=== PATIENT | female | born 1955 | race Caucasian/White ===

== ENCOUNTER 2019-09-11 12:19 | Observation (INO) | payer BC ==
[2019-09-11] MEDS ORDERED: CLINDAMYCIN 600MG/50ML PREMIX 600 MG/50 ML BAG IVPB ONE (13:39)
--- NOTE | 2019-09-11 13:40 | Emergency Department Record ---
History of Present Illness - General Chief complaint: Vomiting Stated complaint: VOMITING Time Seen by Provider: 09/11/19 13:33 Source: Patient, RN notes reviewed Mode of Arrival: Ambulatory - History of Present Illness Initial comments: redness in the left lower leg and vomiting and the redness in the leg started yesterday. Primary is Dr. Merlene Ramos, Left knee replacement 2 years ago Onset/Timin -: Days(s) Associated Abdominal Pain: No Improves with: None Worsens with: None - Related Data Home Medications Medication Instructions Recorded Confirmed Last Taken Allopurinol 100 mg PO DAILY 09/11/19 09/11/19 09/11/19 Amlodipine Besylate [Norvasc] 10 mg PO DAILY 09/11/19 09/11/19 09/11/19 Atorvastatin Calcium [Lipitor] 20 mg PO DAILY 09/11/19 09/11/19 09/11/19 Gabapentin [Neurontin] 400 mg PO TID 09/11/19 09/11/19 09/11/19 Hydrochlorothiazide [Hctz] 25 mg PO DAILY 09/11/19 09/11/19 09/11/19 Levothyroxine Sodium [Synthroid] 175 mcg PO DAILY 09/11/19 09/11/19 09/11/19 Lisinopril 20 mg PO DAILY 09/11/19 09/11/19 09/11/19 Multivitamin [Daily Multiple 1 each PO DAILY 09/11/19 09/11/19 09/11/19 Vitamin] Ubidecarenone [Coq-10] 30 mg PO DAILY 09/11/19 09/11/19 09/11/19 Allergies Allergy/AdvReac Type Severity Reaction Status Date / Time cephalexin [From Keflex] Allergy HIVES Verified 09/11/19 12:26 Travel Screening - Travel/Exposure Within Last 30 Days Have you traveled within the last 30 days?: No - Travel/Exposure Within Last Year Have you traveled outside the [place] in the last year?: No - Additonal Travel Details Have you been exposed to anyone with a communicable illness?: No - Travel Symptoms Symptom Screening: None Review of Systems Reviewed: No additional complaints except as noted below Constitutional: Reports: As per HPI. Denies: Chills, Fever, Malaise, Night swea ts, Weakness, Weight change Eyes: Reports: As per HPI. Denies: Eye discharge, Eye pain, Photophobia, Vision change ENT: Reports: As per HPI. Denies: Congestion, Dental pain, Ear pain, Epistaxis, Hearing loss, Throat pain Respiratory: Reports: As per HPI. Denies: Cough, Dyspnea, Hemoptysis, Stridor, Wheezes Cardiovascular: Reports: As per HPI. Denies: Arrhythmia, Chest pain, Dyspnea on exertion, Edema, Murmurs, Orthopnea, Palpitations, Paroxysmal nocturnal dyspnea, Rheumatic Fever, Syncope Endocrine: Reports: As per HPI. Denies: Fatigue, Heat or cold intolerance, P olydipsia, Polyuria Gastrointestinal: Reports: As per HPI. Denies: Abdominal pain, Constipation, Diarrhea, Hematemesis, Hematochezia, Melena, Nausea, Vomiting Genitourinary: Reports: As per HPI. Denies: Abnormal menses, Discharge, Dyspareunia, Dysuria, Frequency, Hematuria, Incontinence, Retention, Urgency Musculoskeletal: Reports: As per HPI. Denies: Arthralgia, Back pain, Gout, Joint swelling, Myalgia, Neck pain Skin: Reports: As per HPI. Denies: Bruising, Change in color, Change in hair/n ails, Lesions, Pruritus, Rash Neurological: Reports: As per HPI. Denies: Abnormal gait, Confusion, Headache, Numbness, Paresthesias, Seizure, Tingling, Tremors, Vertigo, Weakness Psychiatric: Reports: As per HPI. Denies: Anxiety, Auditory hallucinations, Depression, Homicidal thoughts, Suicidal thoughts, Visual hallucinations Hematological/Lymphatic: Reports: As per HPI. Denies: Anemia, Blood Clots, Easy bleeding, Easy bruising, Swollen glands Past Medical History - SOCIAL HISTORY Smoking Status: Never smoker Alcohol Use: Rare Drug Use: None - RESPIRATORY Hx Respiratory Disorders: No - CARDIOVASCULAR Hx Cardio Disorders: Yes Hx Hypertension: Yes Comment:: high cholesterol - NEURO Hx Neuro Disorders: Yes Hx Neuropathy: Yes - GI Hx GI Disorders: No - Hx Genitourinary Disorders: No - ENDOCRINE Hx Endocrine Disorders: Yes Hx Thyroid Disease: Yes - MUSCULOSKELETAL Hx Musculoskeletal Disorders: Yes - PSYCH Hx Psych Problems: No - HEMATOLOGY/ONCOLOGY Hx Hematology/Oncology Disorders: No Family Medical History Any Significant Family History?: Yes Hx Cancer: Father Hx Heart Disease: Mother Physical Exam - General General Appearance: Alert, Oriented x3, Cooperative, No acute distress - Head Head exam: Normal inspection - Eye Eye exam: Normal appearance, PERRL Pupils: Normal accommodation - ENT ENT exam: Normal exam, Mucous membranes moist, Normal external ear exam, Normal orophraynx, TM's normal bilaterally Ear exam: Normal external inspection. negative: External canal tenderness Nasal Exam: Normal inspection. negative: Discharge, Sinus tenderness Mouth exam: Normal external inspection, Tongue normal Teeth exam: Normal inspection. negative: Dental caries Throat exam: Normal inspection. negative: Tonsillar erythema, Tonsillar exudate - Neck Neck exam: Normal inspection, Full ROM. negative: Tenderness - Respiratory Respiratory exam: Normal lung sounds bilaterally. negative: Respiratory distress - Cardiovascular Cardiovascular Exam: Regular rate, Normal rhythm, Normal heart sounds - GI/Abdominal GI/Abdominal exam: Soft, Normal bowel sounds. negative: Tenderness - Rectal Rectal exam: Deferred - exam: Deferred - Extremities Extremities exam: Normal inspection, Full ROM, Normal capillary refill. negative: Tenderness - Back Back exam: Reports: Normal inspection, Full ROM. Denies: Muscle spasm, Rash noted, Tenderness - Neurological Neurological exam: Alert, Normal gait, Oriented X3, Reflexes normal - Psychiatric Psychiatric exam: Normal affect, Normal mood - Skin Skin exam: Rash (cellulitis of the left lower leg) Course Vital Signs 09/11/19 09/11/19 12:32 12:39 Temperature 100.9 F H 100.9 F H Pulse Rate 93 H 93 H Respiratory 20 20 Rate Blood Pressure 143/71 143/71 Pulse Ox 98 98 - Reevaluation(s) Reevaluation #1: advised patient to stay and she says no she wants to go home. Risk of infection of the knee replacement is a concern. Will talk to his faith. 09/11/19 16:04 Reevaluation #2: patient agreed to stay after heard the discussion. 09/11/19 17:04 Reevaluation #3: admit to Dr Harper 09/11/19 17:06 Medical Decision Making - Lab Data Result diagrams: 09/11/19 13:55 09/11/19 13:55 Disposition Clinical Impression: Cellulitis, leg Qualifiers: Laterality: left Qualified Code(s): L03.116 - Cellulitis of left lower limb Decision to Admit: Admit from ER Condition: (1) Good Forms: Patient Portal Access Time of Disposition: 17:04 Quality - Quality Measures Quality Measures: N/A - Blood Pressure Screening Does Patient Have Any of the Following: No, Active Dx of HTN Blood Pressure Classification: Hypertensive Reading Systolic Measurement: 143 Diastolic Measurement: 71 Screening for High Blood Pressure: Patient Exclusion, Hx of HTN [G9744]
[2019-09-11 14:04] LABS: ABSOLUTE NEUTROPHIL COUNT 12.81; HEMATOCRIT 36.5 % (35.0-47.0); HEMOGLOBIN 11.4 gm/dl (11.6-16.0); MEAN CELL VOLUME 84.9 fl (81-97); MEAN CORPUSCULAR HEMOGLOBIN 26.5 pg (27-33); MEAN CORPUSCULAR HGB CONC 31.2 g/dl (32-36); MEAN PLATELET VOLUME 10.4 fl (7.4-10.4); PLATELET COUNT 253 K/uL (130-400); RED CELL DISTRIBUTION WIDTH 16.7 % (11.5-14.5); WHITE BLOOD COUNT W/O DIFF 14.9 K/uL (4.2-12.2)
[2019-09-11 14:12] LABS: PLATELET ESTIMATE NORMAL (NORMAL)
[2019-09-11 14:17] LABS: BLOOD UREA NITROGEN 13 mg/dL (8-23); CREATININE 0.6 mg/dL (0.5-0.9); EST GLOMERULAR FILTRATION RATE > 60 mL/min
[2019-09-11 14:19] LABS: GLUCOSE,RANDOM 133 mg/dL (74-109)
[2019-09-11] MEDS ORDERED: DOXYCYCLINE HYCLATE 100 MG CAPSULE PO ONE (14:46)
[2019-09-11] MEDS ORDERED: ACETAMINOPHEN 325 MG TAB PO PRN (17:57)
[2019-09-11] MEDS ORDERED: CLINDAMYCIN 600MG/50ML PREMIX 600 MG/50 ML BAG IVPB SCH (18:00)
[2019-09-11] MEDS: CLINDAMYCIN 600MG/50ML PREMIX 600 MG/50 ML BAG IVPB SCH (21:10)
[2019-09-11] MEDS: DOXYCYCLINE HYCLATE 100 MG CAPSULE PO SCH (21:27)
[2019-09-11] MEDS ORDERED: GABAPENTIN 100 MG CAPSULE PO SCH (22:00)
[2019-09-12] MEDS: CLINDAMYCIN 600MG/50ML PREMIX 600 MG/50 ML BAG IVPB SCH ×4 (02:41→21:19)
[2019-09-12] MEDS: LEVOTHYROXINE SODIUM 175 MCG TABLET PO SCH (06:18)
[2019-09-12] MEDS ORDERED: HYDROCHLOROTHIAZIDE 25 MG TABLET PO SCH ×2 (10:00)
[2019-09-12] MEDS ORDERED: LISINOPRIL 20 MG TABLET PO SCH (10:00)
[2019-09-12] MEDS: ENOXAPARIN 40 MG/0.4 ML SYR SC SCH (10:15)
[2019-09-12] MEDS: ALLOPURINOL 100 MG TAB PO SCH (10:15)
[2019-09-12] MEDS: GABAPENTIN 100 MG CAPSULE PO SCH ×3 (10:15→21:18)
[2019-09-12] MEDS: DOXYCYCLINE HYCLATE 100 MG CAPSULE PO SCH ×2 (10:16→21:18)
[2019-09-12] MEDS: MULTIVITAMINS/MINERALS TABLET PO SCH (10:16)
[2019-09-12] MEDS: ATORVASTATIN 20 MG TABLET PO SCH (10:17)
[2019-09-12] MEDS: AMLODIPINE BESYLATE 5MG TAB PO SCH (10:17)
[2019-09-12] MEDS: LISINOPRIL 20 MG TABLET PO SCH ×2 (10:17→21:19)
--- NOTE | 2019-09-12 15:00 | History and Physical Report ---
CHIEF COMPLAINT: Redness left lower leg, vomiting. Redness in her left lower leg started yesterday, the day prior to admission on 09/10/2019. Primary physician is Dr. Merlene Ramos. She had a left knee replacement a couple of years ago and this redness started with a small sore on the medial side of the ankle area and then extended up to just below the knee. PAST MEDICAL HISTORY: Hypercholesterolemia, hypertension, neuropathy of the legs, hypothyroidism, arthritis, low back pain. PAST SURGICAL HISTORY: Bilateral knee replacements, back surgery, shoulder surgery, hysterectomy, and cholecystectomy. MEDICATIONS: 1. Lisinopril 20 mg b.i.d. 2. Gabapentin 100 mg t.i.d. 3. Allopurinol 100 mg daily. 4. Atorvastatin 20 mg daily. 5. Amlodipine 10 mg daily. 6. Levothyroxine 175 mcg daily. 7. Hydrochlorothiazide 25 mg daily. 8. CoQ10 30 mg daily. 9. Multivitamin 1 a day. ALLERGIES: CEPHALEXIN. SOCIAL HISTORY: Never smoked. Rare alcohol use. No drug use. FAMILY HISTORY: Father had cancer, mother had heart disease. REVIEW OF SYSTEMS: HEENT: No blurred vision, tinnitus, decreased hearing, headaches, dizziness, earaches, trouble swallowing, epistaxis, itching of the eyes or nose, facial pain. No double vision or vision loss. Cardiovascular: No arrhythmias, chest pain, murmurs, palpitations, or orthopnea. Respiratory: Denies being short of breath, cough, cold, congestion, or wheezing. Sleep History: No daytime sleepiness. Gastrointestinal: No nausea, vomiting, diarrhea, black stools, or bloody stools. Genitourinary: No dysuria, hematuria, frequency, or burning on urination. Musculoskeletal: She does have some chronic back pain and arthritis. Otherwise moving all 4 extremities. She has redness of the left lower leg. Neurological: No tremors, change in memory, speech problems, paresthesias, seizures, headaches, visual changes, or abnormal balance or fainting spells, depression, sadness, or panic attacks. DIRECTOR OF SLEEP History: No dysfunctional uterine bleeding. No dyspareunia. No dysmenorrhea. No vaginal discharge. No breast masses or pelvic pain. Endocrine: No polyuria or polydipsia. She does have hypothyroidism. She denies any fatigue, weight changes, weight loss. Integument: No rash, ulcers, change in moles, or yellow skin. PHYSICAL EXAMINATION: VITALS: Temperature in the emergency department 100.9, weight 255 pounds, height 5 feet 4 inches, pulse 93, blood pressure 143/71, respiratory rate 20, pulse ox 98% on room air. She did vomit in the emergency department. HEENT: Pupils are equal, round, and reactive to light and accommodation. Extraocular muscles are intact. Fundoscopic exam benign. Throat is clear. Nose is clear. Tympanic membranes are snell. NECK: Supple. No jugular venous distention. No hepatojugular reflux. No carotid bruits. Thyroid is smooth. CARDIOVASCULAR: Regular rate and rhythm without murmurs, clicks, rubs, or gallops. RESPIRATORY: Clear to auscultation and percussion. ABDOMEN: Soft, nontender. No hepatosplenomegaly, no masses, no tenderness. Bowel sounds are active. No hernia. Sites are normal. EXTREMITIES: No pitting edema. No cyanosis, no clubbing. Full range of motion. There is redness in the left lower leg just below the knee outlined with skin marker. No pain moving the joints. She has a knee scar from knee replacement in the left leg, actually both legs. JOINTS: No swelling, no tenderness. BREASTS: Deferred. RECTAL: Deferred. GENITALIA: Deferred. NEUROLOGIC: Cranial nerves II-XII intact. No gross defects. Sensation normal, strength normal. Deep tendon reflexes equal bilaterally. MENTAL STATUS: Alert and oriented x3. SKIN: Redness in the left lower leg from the ankle to the knee. It is over the incision of the knee replacement. IMPRESSION: 1. Cellulitis of the left lower leg. Concern that it may move into the artificial knee. 2. Neuropathy of the legs. 3. Hypertension. 4. Hypothyroidism. PLAN: IV clindamycin 600 mg q.6 h., doxycycline orally 100 mg b.i.d. Cover with DVT prophylaxis with Lovenox 40 mg subcu daily. MTDD
[2019-09-13] MEDS: CLINDAMYCIN 600MG/50ML PREMIX 600 MG/50 ML BAG IVPB SCH ×2 (03:15→09:46)
[2019-09-13] MEDS: LEVOTHYROXINE SODIUM 175 MCG TABLET PO SCH (06:42)
[2019-09-13] MEDS: ATORVASTATIN 20 MG TABLET PO SCH (09:46)
[2019-09-13] MEDS: AMLODIPINE BESYLATE 5MG TAB PO SCH (09:46)
[2019-09-13] MEDS: DOXYCYCLINE HYCLATE 100 MG CAPSULE PO SCH (09:46)
[2019-09-13] MEDS: LISINOPRIL 20 MG TABLET PO SCH (09:46)
[2019-09-13] MEDS: GABAPENTIN 100 MG CAPSULE PO SCH (09:46)
[2019-09-13] MEDS: MULTIVITAMINS/MINERALS TABLET PO SCH (09:47)
[2019-09-13] MEDS: ALLOPURINOL 100 MG TAB PO SCH (09:47)
[2019-09-13] MEDS: ENOXAPARIN 40 MG/0.4 ML SYR SC SCH (09:47)
--- NOTE | 2019-09-13 12:18 | Discharge Summary ---
Providers Discharge Summary Date: 09/13/19 Date of admission: 09/11/19 17:28 Expected Date of Discharge: 09/13/19 Attending physician: Grant Harper Primary care physician: JOSESITO VACA D.O. Physical Exam - Vital Signs Vital Signs: Vital Signs - Last 24 Hrs Temp Pulse Resp BP Pulse Ox 09/13/19 10:00 98.3 F 66 16 113/64 98 09/13/19 06:00 97.6 F 72 18 109/76 95 09/13/19 00:13 80 18 95 09/12/19 20:00 98.3 F 83 18 125/56 96 09/12/19 17:20 98.7 F 84 20 138/90 99 09/12/19 13:53 98.7 F 85 20 135/85 98 - General General Appearance: Alert, Oriented x3, Cooperative, No acute distress - Head Head exam: Normal inspection - Eye Eye exam: Normal appearance, PERRL Pupils: Normal accommodation - ENT ENT exam: Normal exam, Mucous membranes moist, Normal external ear exam, Normal orophraynx, TM's normal bilaterally Ear exam: Normal external inspection. negative: External canal tenderness Nasal Exam: Normal inspection. negative: Discharge, Sinus tenderness Mouth exam: Normal external inspection, Tongue normal Teeth exam: Normal inspection. negative: Dental caries Throat exam: Normal inspection. negative: Tonsillar erythema, Tonsillar exudate - Neck Neck exam: Normal inspection, Full ROM. negative: Tenderness - Respiratory Respiratory exam: Normal lung sounds bilaterally. negative: Respiratory distress - Cardiovascular Cardiovascular Exam: Regular rate, Normal rhythm, Normal heart sounds - GI/Abdominal GI/Abdominal exam: Soft, Normal bowel sounds. negative: Tenderness - Rectal Rectal exam: Deferred - exam: Deferred - Extremities Extremities exam: Normal inspection, Full ROM, Normal capillary refill. negative: Tenderness - Back Back exam: Reports: Normal inspection, Full ROM. Denies: Muscle spasm, Rash noted, Tenderness - Neurological Neurological exam: Alert, Normal gait, Oriented X3, Reflexes normal - Psychiatric Psychiatric exam: Normal affect, Normal mood - Skin Skin exam: Rash (cellulitis of the left lower leg improving) Distribution of rash: LLE Description of rash: Erythematous, Other (initial spot on the medial ankle area) Hospitalization - Hospitalization Admission Diagnosis: cellulitis left leg - Problem List/Discharge Diagnosis (1) Cellulitis, leg Current Visit: Yes Status: Acute Discharge Diagnosis: Laterality: left Qualified Code(s): L03.116 - Cellulitis of left lower limb Base Code: L03.119 - CELLULITIS OF UNSPECIFIED PART OF LIMB Diagnosis Priority: Primary Comment: improving with clindamycin and doxy will discharge with outpatient scripts (2) Neuropathy of lower extremity Current Visit: Yes Status: Acute Discharge Diagnosis: Laterality: bilateral Qualified Code(s): G57.93 - Unspecified mononeuropathy of bilateral lower limbs Base Code: G57.90 - UNSPECIFIED MONONEUROPATHY OF UNSPECIFIED LOWER LIMB Diagnosis Priority: Secondary (3) Hypertension Current Visit: Yes Status: Acute Discharge Diagnosis: Hypertension type: essential hypertension Qualified Code(s): I10 - Essent ial (primary) hypertension Base Code: I10 - ESSENTIAL (PRIMARY) HYPERTENSION Diagnosis Priority: Secondary (4) Hypothyroidism Current Visit: Yes Status: Chronic Base Code: E03.9 - HYPOTHYROIDISM, UNSPECIFIED Diagnosis Priority: Secondary - Hospitalization Course Disposition: Home, Self-Care Hospital Course: patient's cellulitis is starting to improve so the antibiotics are working will discharge with both clindamycin and doxy Patient is improving slowly Abnormal Labs: Abnormal Lab Results 09/11/19 09/11/19 Range/Units 13:55 13:55 WBC 14.9 H (4.2-12.2) K/uL Hgb 11.4 L (11.6-16.0) gm/dl MCH 26.5 L (27-33) pg MCHC 31.2 L (32-36) g/dl RDW 16.7 H (11.5-14.5) % Neutrophils % 83.0 H (47-80) % Band Neutrophils % 7.0 H (0-5) % Lymphocytes 8.0 L (16-45) % Random Glucose 133 H (74-109) mg/dL Condition at Discharge: (1) Good Discharge Diagnosis: cellulitis of the left leg VTE Discharge VTE Reason For No Overlap Therapy: Not Indicated Discharge Medications - Discharge Medications Prescriptions: Clindamycin HCl 300 mg PO Q6HR #40 capsule Doxycycline Hyclate [Vibramycin] 100 mg PO BID #20 capsule Home Medications: Ambulatory Orders Allopurinol 100 mg PO DAILY 09/11/19 [Last Taken 09/11/19] Amlodipine Besylate [Norvasc] 10 mg PO DAILY 09/11/19 [Last Taken 09/11/19] Atorvastatin Calcium [Lipitor] 20 mg PO DAILY 09/11/19 [Last Taken 09/11/19] Gabapentin [Neurontin] 100 mg PO TID 09/11/19 [Last Taken Unknown] Hydrochlorothiazide [Hctz] 25 mg PO DAILY 09/11/19 [Last Taken 09/11/19] Levothyroxine Sodium [Synthroid] 175 mcg PO DAILY 09/11/19 [Last Taken 09/11/19] Lisinopril 20 mg PO BID 09/11/19 [Last Taken Unknown] Multivitamin [Daily Multiple Vitamin] 1 each PO DAILY 09/11/19 [Last Taken 09/11/19] Ubidecarenone [Coq-10] 30 mg PO DAILY 09/11/19 [Last Taken 09/11/19] Acetaminophen [Tylenol 325Mg] 650 mg PO Q6H PRN tablet 09/13/19 [Last Taken Unknown] Clindamycin HCl 300 mg PO Q6HR #40 capsule 09/13/19 [Last Taken Unknown] Doxycycline Hyclate [Vibramycin] 100 mg PO BID #20 capsule 09/13/19 [Last Taken Unknown] Multivitamin/Iron/Folic Acid [Centrum] 1 tab PO DAILY tablet 09/13/19 [Last Taken Unknown] Discharge Plan - Discharge Instructions Activity at Discharge: Increase Activity as Tolerated Diet at Discharge: Regular Diet Quality Measures - Quality Measures Quality Measures: Documentation of Current Medications in Medical Record, Screening for High Blood Pressure and F/U Documented - Current Medications Quality Measure: Measure #130: Documentation of Current Medications Documentation of Current Medications: <Current Medications Documented/Reviewed> [G8427] - Blood Pressure Screening Quality Measure: Screening for High Blood Pressure and Follow-Up Documented Does Patient Have Any of the Following: Active Dx of HTN Blood Pressure Classification: Pre-Hypertensive BP Reading Systolic Measurement: 132 Diastolic Measurement: 74 Screening for High Blood Pressure: Patient Exclusion, Hx of HTN [G9744] - Elder Abuse Suspicion Index EASI Reference Information: Juan C DEMARCO, Dave C, Tello D, Beatriz Stanton.Development and validation of a tool to assist physicians identification of elder abuse: The Elder Abuse Suspicion Index (EASI ). Journal of Elder Abuse and Neglect, 2008; 20 (3): 276-300.
--- NOTE | 2019-09-16 07:30 | Discharge Summary ---
DATE: 09/13/2019 at 12:30 p.m. DISCHARGE DIAGNOSES: 1. Acute cellulitis of the left lower leg. 2. Neuropathy of both legs. 3. Hypertension. 4. Hypothyroidism. ATTENDING PHYSICIAN: Grant Harper DO REASON FOR HOSPITALIZATION: Redness left lower leg and vomiting. Redness in the left lower leg started the day prior to admission on 09/10/2019. Primary physician is Dr. Merlene Ramos. She had a left knee replacement a couple of years ago and the redness started with a small sore on the medial side of the ankle area, and the redness is extending up to just below the knee. She also was vomiting in the emergency department. The patient was admitted for IV clindamycin and oral doxycycline and further evaluation. The patient stated that she had had cellulitis in the past. Usually it is on both legs when it happens. SIGNIFICANT FINDINGS: WBC 14,900, hemoglobin 11.4, segs 83, bands 7, lymphs 8. THERAPY PROVIDED: The patient was started on IV clindamycin 600 mg q.6 h. and oral doxycycline 100 mg b.i.d. The patient was observed for 2 days and the redness was starting to clear, which I feel comfortable now she is on the appropriate antibiotics. Will discharge on oral clindamycin and oral doxycycline. CONDITION ON DISCHARGE: Much improved. DISCHARGE INSTRUCTIONS: Follow up with Dr. Merlene Ramos as scheduled in 5-7 days, sooner if she is having more troubles. Discharge medication includes doxycycline b.i.d. for 10 days, clindamycin 300 mg q.i.d. for 10 days. Continue her home medications. [facility]
== END 2019-09-13 13:20 | disposition home or self-care (01) ==
LOC: ER 12:19 → MEDSURG 17:28
PROVIDERS: ADMIT Emergency Medicine; ATTEND Emergency Medicine
DX: L03.116 Cellulitis of left lower limb (principal); I10 Essential (primary) hypertension; E78.00 Pure hypercholesterolemia, unspecified; E03.9 Hypothyroidism, unspecified; G62.9 Polyneuropathy, unspecified; Z96.652 Presence of left artificial knee joint
CPT/HCPCS: 80048; 85027; G0378 ×3; 96365; 99217; 99220; 99285; J1650